=== PATIENT | female | born 1980 | race Caucasian/White ===

== ENCOUNTER 2018-02-12 23:03 | Emergency (ER) | payer OTHER ==
[~2018-02-12] VITALS: Ht 7.6 cm; Wt 90.7 kg
[~2018-02-12 23:03] MED LIST: HYDR25T PO; MEDROL DOSEPAK4 MG PO; NAPROSYN500 MG PO; NORCO 325 MG-51 TAB PO; ULTRAM50 MG PO; ZOFRAN ODT4 MG SL
[2018-02-12 23:55] LABS: BASO % 0.3 % (0.0-1.0); EOS # 0.1 10*3/uL (0.0-0.4); EOS % 1.6 % (1.0-4.0); HEMATOCRIT 38.7 % (37.0-47.0); HEMOGLOBIN 13.2 g/dl (12.0-16.0); LYMPH # 3.6 10*3/uL (1.3-4.4); LYMPH % 40.1 % (27.0-41.0); MEAN CELL VOLUME 86.6 fl (81.0-99.0); MEAN CORPUSCULAR HGB 29.5 pg (27.0-31.0); MEAN CORPUSCULAR HGB CONC 34.1 g/dl (33.0-37.0); MEAN PLATELET VOLUME 10.7 fl (9.6-12.3); MONO # 0.6 10*3/uL (0.1-1.0); MONO % 6.5 % (3.0-9.0); NEUT # 4.6 10*3/uL (2.3-7.9); NEUT % 51.3 % (47.0-73.0); PLATELET COUNT AUTOMATED 223 10*3/uL (130-400); RED BLOOD COUNT 4.47 10*6/uL (4.10-5.10); RED CELL DISTRI WIDTH 12.4 % (0-14.5)
[2018-02-13 00:02] LABS: INTERNATIONAL NORM RATIO 0.9 (2.0-3.5)
[2018-02-13 00:13] LABS: ALBUMIN 3.6 gm/dl (3.1-4.5); ALKALINE PHOSPHATASE 81 U/L (45-117); BUN 11 mg/dl (7-24); CHLORIDE 104 mmol/L (98-107); CREATININE 0.72 mg/dL (0.55-1.02); POTASSIUM 3.6 mmol/L (3.5-5.1); SGOT/AST 29 IU/L (3-35); SGPT/ALT 64 U/L (12-78); SODIUM 140 mmol/L (136-145); TOTAL PROTEIN 6.8 gm/dL (6.4-8.2)
[2018-02-13 00:15] LABS: TROPONIN I < 0.015 ng/ml (<0.045)
[2018-02-13] MEDS ORDERED: CEPHALEXIN500 M1 PO (02:02)
== END 2018-02-13 02:02 | disposition home or self-care (01) ==
LOC: ED 23:03
PROVIDERS: Physician Assistant
DX: L03.115 Cellulitis of right lower limb (principal); R07.89 Other chest pain; Z90.710 Acquired absence of both cervix and uterus; Z88.1 Allergy status to other antibiotic agents

== ENCOUNTER → 2023-08-31 | Outpatient (CLI) | payer OTHER ==
[~2023-08-31] MED LIST changes: +CEPHALEXIN500 M1 PO
[2023-08-31 15:01] LABS: BASO % 0.6 % (0.0-1.0); EOS # 0.1 10*3/uL (0.0-0.4); EOS % 0.9 % (1.0-4.0); HEMATOCRIT 44.6 % (37.0-47.0); LYMPH % 28.4 % (27.0-41.0); MEAN CELL VOLUME 85.6 fl (81.0-99.0); MEAN CORPUSCULAR HGB 29.4 pg (27.0-31.0); MEAN CORPUSCULAR HGB CONC 34.3 g/dl (33.0-37.0); MEAN PLATELET VOLUME 10.4 fl (9.6-12.3); MONO # 0.4 10*3/uL (0.1-1.0); MONO % 5.7 % (3.0-9.0); NEUT # 4.4 10*3/uL (2.3-7.9); NEUT % 64.1 % (47.0-73.0); PLATELET COUNT AUTOMATED 250 10*3/uL (130-400); RED BLOOD COUNT 5.21 10*6/uL (4.10-5.10); RETICULOCYTE % 1.59 % (0.50-2.50); WHITE BLOOD COUNT 6.9 10*3/uL (4.8-10.8)
[2023-08-31 15:08] LABS: BILIRUBIN Negative (Negative); BLOOD Negative (Negative); CLARITY Clear (Clear); COLOR Yellow (Yellow); GLUCOSE Negative (Negative); KETONE Negative (Negative); LEUKO ESTERASE Negative (Negative); NITRITE Negative (Negative); PH 5.5 (4.5-8.0); UROBILINOGEN 0.2 E.U./dl (0.0-1.0)
[2023-08-31 15:24] LABS: BACTERIA TRACE
[2023-08-31 15:29] LABS: ALKALINE PHOSPHATASE 60 U/L (46-116); BUN 7 mg/dl (9-23); CHLORIDE 103 mmol/L (98-107); CHOLESTEROL 236 mg/dL (<200); GAMMA GLUTAMYL TRANSPEPTIDASE 33 U/L (0-73); LDL CHOLESTEROL 153 mg/dL (9-159); POTASSIUM 3.4 mmol/L (3.4-5.1); SGPT/ALT 57 U/L (5-49); T3 UPTAKE 19.4 % (22.4-36.7); THYROXINE (T4) TOTAL 10.4 ug/dl (4.5-10.9); TOTAL PROTEIN 7.5 gm/dL (6.0-8.0); TRIGLYCERIDES 133 mg/dl (<150); URIC ACID 6.2 mg/dL (3.1-7.8)
[2023-08-31 15:31] LABS: VITAMIN D, 25-HYDROXY 17.7 ng/mL (30-100)
[2023-09-02 15:04] LABS: ANTI-DSDNA ANTIBODIES 2 IU/mL (0-9)
== END | disposition home or self-care (01) ==
LOC: LAB 14:37
PROVIDERS: ATTEND Family Medicine
DX: E78.5 Hyperlipidemia, unspecified (principal); R79.89 Other specified abnormal findings of blood chemistry; R53.83 Other fatigue; E55.9 Vitamin D deficiency, unspecified

== ENCOUNTER → 2023-09-24 | Outpatient (CLI) | payer OTHER | END | disposition home or self-care (01) | LOC: US 09:00 | PROVIDERS: ATTEND Family Medicine | DX: K76.0 Fatty (change of) liver, not elsewhere classified (principal); R16.1 Splenomegaly, not elsewhere classified; Z90.710 Acquired absence of both cervix and uterus ==

== ENCOUNTER → 2023-10-08 | Outpatient (CLI) | payer OTHER | END | disposition home or self-care (01) | LOC: NM 03:38 | PROVIDERS: ATTEND Family Medicine | DX: R10.84 Generalized abdominal pain (principal) ==

== ENCOUNTER → 2024-01-04 | Outpatient (CLI) | payer OTHER ==
[2024-01-04 15:50] LABS: BASO % 0.5 % (0.0-1.0); EOS # 0.1 10*3/uL (0.0-0.4); EOS % 1.1 % (1.0-4.0); HEMATOCRIT 42.6 % (37.0-47.0); LYMPH # 2.3 10*3/uL (1.3-4.4); LYMPH % 31.8 % (27.0-41.0); MEAN CELL VOLUME 85.4 fl (81.0-99.0); MEAN CORPUSCULAR HGB 28.9 pg (27.0-31.0); MEAN CORPUSCULAR HGB CONC 33.8 g/dl (33.0-37.0); MEAN PLATELET VOLUME 10.6 fl (9.6-12.3); MONO # 0.6 10*3/uL (0.1-1.0); MONO % 8.1 % (3.0-9.0); NEUT # 4.2 10*3/uL (2.3-7.9); NEUT % 58.2 % (47.0-73.0); PLATELET COUNT AUTOMATED 226 10*3/uL (130-400); RED BLOOD COUNT 4.99 10*6/uL (4.10-5.10); RED CELL DISTRI WIDTH 12.2 % (0-14.5); RETICULOCYTE % 1.61 % (0.50-2.50); WHITE BLOOD COUNT 7.3 10*3/uL (4.8-10.8)
[2024-01-04 15:55] LABS: BILIRUBIN Negative (Negative); BLOOD Negative (Negative); CLARITY Clear (Clear); COLOR Yellow (Yellow); GLUCOSE Negative (Negative); KETONE Negative (Negative); LEUKO ESTERASE Trace (Negative); NITRITE Negative (Negative); SPECIFIC GRAVITY 1.015 (1.001-1.030); UROBILINOGEN 0.2 E.U./dl (0.0-1.0)
[2024-01-04 16:25] LABS: ALKALINE PHOSPHATASE 62 U/L (46-116); BUN 8 mg/dl (9-23); CHLORIDE 105 mmol/L (98-107); CHOLESTEROL 199 mg/dL (<200); GAMMA GLUTAMYL TRANSPEPTIDASE 28 U/L (0-73); LDL CHOLESTEROL 114 mg/dL (9-159); POTASSIUM 3.8 mmol/L (3.4-5.1); SGPT/ALT 43 U/L (5-49); T3 UPTAKE 21.5 % (22.4-36.7); TOTAL PROTEIN 6.6 gm/dL (6.0-8.0); TRIGLYCERIDES 196 mg/dl (<150); VITAMIN D, 25-HYDROXY 11.3 ng/mL (30-100)
[2024-01-04 16:49] LABS: BACTERIA 1+; RBC 0-2 rbc/hpf (0-2)
== END | disposition home or self-care (01) ==
LOC: LAB 15:16
PROVIDERS: ATTEND Family Medicine
DX: R53.83 Other fatigue (principal); R79.89 Other specified abnormal findings of blood chemistry; E55.9 Vitamin D deficiency, unspecified

== ENCOUNTER → 2024-01-18 | Outpatient (CLI) | payer OTHER | END | disposition home or self-care (01) | LOC: US 12:11 | PROVIDERS: ATTEND Family Medicine | DX: M79.605 Pain in left leg (principal); M79.604 Pain in right leg; I99.9 Unspecified disorder of circulatory system; R60.0 Localized edema; Z87.891 Personal history of nicotine dependence ==

== ENCOUNTER → 2024-03-14 | Outpatient (CLI) | payer OTHER | END | disposition home or self-care (01) | LOC: CARD 09:30 | PROVIDERS: ATTEND Internal Medicine Cardiovascular Disease | DX: I49.8 Other specified cardiac arrhythmias (principal); R06.09 Other forms of dyspnea ==

== ENCOUNTER → 2024-03-18 | Outpatient (CLI) | payer OTHER ==
[2024-03-18 12:32] LABS: BILIRUBIN Negative (Negative); BLOOD Negative (Negative); CLARITY Clear (Clear); COLOR Yellow (Yellow); GLUCOSE Negative (Negative); KETONE Negative (Negative); LEUKO ESTERASE Trace (Negative); NITRITE Negative (Negative); PH 6.5 (4.5-8.0); SPECIFIC GRAVITY <= 1.005 (1.001-1.030); UROBILINOGEN 0.2 E.U./dl (0.0-1.0)
[2024-03-18 12:32] LABS: BASO % 0.7 % (0.0-1.0); EOS # 0.1 10*3/uL (0.0-0.4); EOS % 1.7 % (1.0-4.0); HEMATOCRIT 39.9 % (37.0-47.0); LYMPH % 33.2 % (27.0-41.0); MEAN CELL VOLUME 84.9 fl (81.0-99.0); MEAN CORPUSCULAR HGB 30.2 pg (27.0-31.0); MEAN CORPUSCULAR HGB CONC 35.6 g/dl (33.0-37.0); MEAN PLATELET VOLUME 10.9 fl (9.6-12.3); MONO # 0.4 10*3/uL (0.1-1.0); NEUT # 3.4 10*3/uL (2.3-7.9); NEUT % 57.1 % (47.0-73.0); PLATELET COUNT AUTOMATED 236 10*3/uL (130-400); RED CELL DISTRI WIDTH 12.3 % (0-14.5); RETICULOCYTE % 1.91 % (0.50-2.50); WHITE BLOOD COUNT 5.9 10*3/uL (4.8-10.8)
[2024-03-18 13:06] LABS: ALKALINE PHOSPHATASE 62 U/L (46-116); BUN 6 mg/dl (9-23); CHLORIDE 105 mmol/L (98-107); CHOLESTEROL 203 mg/dL (<200); GAMMA GLUTAMYL TRANSPEPTIDASE 31 U/L (0-73); LDL CHOLESTEROL 121 mg/dL (9-159); POTASSIUM 3.8 mmol/L (3.4-5.1); SGPT/ALT 53 U/L (5-49); TOTAL PROTEIN 6.7 gm/dL (6.0-8.0); TRIGLYCERIDES 173 mg/dl (<150)
[2024-03-18 13:07] LABS: VITAMIN D, 25-HYDROXY 19.7 ng/mL (30-100)
[2024-03-18 13:38] LABS: BACTERIA 1+; EPITHELIAL CELLS 16-20
== END | disposition home or self-care (01) ==
LOC: LAB 12:06
PROVIDERS: ATTEND Family Medicine
DX: R53.83 Other fatigue (principal); R79.89 Other specified abnormal findings of blood chemistry; E78.5 Hyperlipidemia, unspecified; E55.9 Vitamin D deficiency, unspecified

== ENCOUNTER → 2024-07-21 | Outpatient (CLI) | payer OTHER ==
[2024-07-21 11:40] LABS: HEMATOCRIT 43.2 % (37.0-47.0); MEAN CELL VOLUME 85.9 fl (81.0-99.0); MEAN CORPUSCULAR HGB CONC 33.8 g/dl (33.0-37.0); MEAN PLATELET VOLUME 10.2 fl (9.6-12.3); PLATELET COUNT AUTOMATED 222 10*3/uL (130-400); RED BLOOD COUNT 5.03 10*6/uL (4.10-5.10); RED CELL DISTRI WIDTH 12.4 % (0-14.5); RETICULOCYTE % 1.81 % (0.50-2.50); WHITE BLOOD COUNT 5.3 10*3/uL (4.8-10.8)
[2024-07-21 11:42] LABS: BILIRUBIN Negative (Negative); BLOOD Negative (Negative); CLARITY Clear (Clear); COLOR Yellow (Yellow); GLUCOSE Negative (Negative); KETONE Trace (Negative); LEUKO ESTERASE Trace (Negative); NITRITE Negative (Negative); PH 5.5 (4.5-8.0)
[2024-07-21 12:16] LABS: VITAMIN D, 25-HYDROXY 29.5 ng/mL (30-100)
[2024-07-21 12:17] LABS: ALKALINE PHOSPHATASE 66 U/L (46-116); BUN 6 mg/dl (9-23); CHLORIDE 105 mmol/L (98-107); CHOLESTEROL 210 mg/dL (<200); GAMMA GLUTAMYL TRANSPEPTIDASE 50 U/L (0-73); LDL CHOLESTEROL 129 mg/dL (9-159); SGPT/ALT 60 U/L (5-49); T3 UPTAKE 19.1 % (22.4-36.7); THYROXINE (T4) TOTAL 8.8 ug/dl (4.5-10.9); TOTAL PROTEIN 7.2 gm/dL (6.0-8.0); TRIGLYCERIDES 158 mg/dl (<150)
[2024-07-21 12:37] LABS: OVALOCYTES FEW; PLATELET SUFFICIENCY NORMAL (NORMAL); POLYCHROMASIA SLIGHT; TOTAL CELLS COUNTED 100 #CELLS
[2024-07-21 13:53] LABS: BACTERIA 1+; MUCOUS 2+
[2024-07-22 04:07] LABS: TOTAL PROTEIN, SERUM 6.8 g/dL (6.0-8.5)
[2024-07-22 15:08] LABS: A/G RATIO 1.5 (0.7-1.7); ALBUMIN 4.1 g/dL (2.9-4.4); ALPHA-1-GLOBULIN 0.2 g/dL (0.0-0.4); ALPHA-2-GLOBULIN 0.7 g/dL (0.4-1.0); GAMMA GLOBULIN 0.8 g/dL (0.4-1.8); GLOBULIN, TOTAL 2.7 g/dL (2.2-3.9)
== END | disposition home or self-care (01) ==
LOC: LAB 11:09
PROVIDERS: ATTEND Family Medicine
DX: R79.89 Other specified abnormal findings of blood chemistry (principal); R53.83 Other fatigue; E78.5 Hyperlipidemia, unspecified; E55.9 Vitamin D deficiency, unspecified